=== PATIENT | male | born 1975 | race Caucasian/White ===

== ENCOUNTER → 2017-07-24 | Outpatient (CLI) | payer BC ==
[~2017-07-24] MED LIST: CNC36; GLC500; GLIM1TAB2 PO; METF-384 PO
--- NOTE | 2017-07-24 14:16 | DIAGNOSTIC IMAGING REPORT ---
CERVICAL WITHOUT CONTRAST CLINICAL HISTORY: 41 years-old Male presenting with M54.2 Neck [id number]. TECHNIQUE: Multisequence, multiplanar MR imaging of the cervical spine was performed without the use of intravenous contrast. IV contrast: None. COMPARISON: Cervical spine radiographs from 12/31/2015. FINDINGS: Localizer images: Unremarkable. Normal cervical lordosis. Vertebral bodies maintain normal height, alignment, and bone marrow signal intensity. Mild intervertebral disc desiccation noted diffusely throughout the cervical spine. Additional degenerative changes further detailed below: C2-3: No significant neural foraminal or spinal canal stenosis. C3-4:: Uncovertebral hypertrophy on the left results in mild left neural foraminal narrowing. No significant spinal canal narrowing. C4-5: No significant neural foraminal or spinal canal narrowing. C5-6: Disc osteophyte complex results in mild effacement of the anterior thecal sac and mild contouring of the spinal cord. Mild bilateral neural foraminal narrowing. C6-7: Disc osteophyte complex and ligamentum flavum thickening result in near complete effacement of the thecal sac and slight flattening of the spinal cord. No abnormal spinal cord signal at this level. Uncovertebral hypertrophy results in mild bilateral neural foraminal narrowing. C7-T1: No significant neural foraminal or spinal canal stenosis. Spinal cord normal in morphology with the exception of contouring as detailed above. No abnormal spinal cord signal. Craniocervical junction normal. Paraspinal soft tissues within normal limits. IMPRESSION: 1. Focal degenerative change at C5-6 and C6-7 results in significant spinal canal narrowing. The absence of spinal cord edema argues against spinal cord impingement. 2. Multilevel mild neuroforaminal narrowing as detailed above. Electronically signed by: Slim Loza M.D. 07/24/2017 2:15 PM Dictated Date/Time: 07/24/2017 2:06 PM
== END | disposition home or self-care (01) ==
LOC: C.MRI 13:19
PROVIDERS: ATTEND Internal Medicine
DX: M54.2 Cervicalgia (principal); M99.71 Connective tissue and disc stenosis of intervertebral foramina of cervical region